=== PATIENT | male | born 1980 | race Hispanic/Latino ===

== ENCOUNTER → 2018-10-23 | Outpatient (CLI) | payer OTHER ==
--- NOTE | 2018-10-23 12:41 | Diagnostic Imaging Report ---
TECHNIQUE: Magnetic resonance imaging of the right SHOULDER was performed WITHOUT injected contrast. COMPARISON: None available. HISTORY: Pain FINDINGS: MUSCLES AND TENDONS: Rotator Cuff: Tendons: Bursal surface fraying of the supraspinatus tendon. Muscles: No focal muscle atrophy. Biceps Tendon: The long head of the biceps tendon is intact and within the intertubercular groove. GLENOHUMERAL JOINT: Post surgical change to the glenoid from prior labral repair with susceptibility artifact. Glenoid Labrum: No displaced tear. Articular Cartilage: No focal defect. AC JOINT AND ACROMION: No hypertrophic degenerative changes of the acromioclavicular joint. The acromion is unremarkable. BONE: No focal or infiltrative bone marrow replacing abnormality. No acute fracture. SOFT TISSUES: Otherwise, the soft tissues appear unremarkable. IMPRESSION: Supraspinatus bursal surface fraying without tear. Post surgical change to the glenoid. No visualized labral tear. Signed by: Dr. Rigo Sumner M.D. on 10/23/2018 12:38 PM
== END ==
LOC: MRI 10:13
PROVIDERS: ATTEND Family Medicine
DX: M25.511 Pain in right shoulder (principal)